=== PATIENT | male | born 1955 | race Caucasian/White ===

== ENCOUNTER 2018-07-07 03:08 | Emergency (ER) | payer OTHER ==
[2018-07-07 03:41] LABS: PLATELET COUNT 255 10^3/uL (150-400)
[2018-07-07] MEDS ORDERED: NS 1,000 ML IV ONE (04:23)
[2018-07-07] MEDS ORDERED: HYDROmorphONE/DILAUDID 2 MG/ML INJ IVP ONE (04:23)
[2018-07-07] MEDS ORDERED: ONDANSETRON 4 MG/2 ML VIAL IVP ONE (04:23)
--- NOTE | 2018-07-07 04:38 | EDPHY ---
H & P Stated Complaint: r u q abd pain for 4 days Time Seen by Provider: 07/07/18 03:58 HPI/ROS: HPI The patient presents with right upper quadrant abdominal pain which has been present for the last 4 days. Prior to this he was having cough and sore throat and subsequently the pain developed. He was seen by his primary care doctor and diagnosed with bronchitis. However his cough is now improved and the pain continues. It is intermittent, sharp in nature, does not radiate, is not associated with nausea or vomiting. It is improved upon walking and worse when lying flat. It is not related to meals. He drinks about 1 glass of wine per day. He has history of bilateral inguinal hernia repair. He does not have any fever, dark or bloody stools. REVIEW OF SYSTEMS Constitutional: No fever, no chills. Eyes: No discharge. ENT: No sore throat. Cardiovascular: No chest pain, no palpitations. Respiratory: No cough, no shortness of breath. Gastrointestinal: See HPI Genitourinary: No hematuria. Musculoskeletal: No back pain. Skin: No rashes. Neurological: No headache. PMHx: Hypertension Soc Hx: Occasional alcohol PHYSICAL General Appearance: Alert, no distress Eyes: Pupils equal and round no pallor or injection ENT, Mouth: Mucous membranes moist Respiratory: There are no retractions, lungs are clear to auscultation Cardiovascular: Regular rate and rhythm Gastrointestinal: Abdomen is soft with mild tenderness in the right upper quadrant without rebound or guarding Neurological: A&O, moves all extremities Skin: Warm and dry, no rashes Musculoskeletal: Neck is supple non tender Extremities: symmetrical, full range of motion Psychiatric: Patient is oriented X 3, there is no agitation Source: Patient Exam Limitations: No limitations - Personal History Current Tetanus/Diphtheria Vaccine: Yes Current Tetanus Diphtheria and Acellular Pertussis (TDAP): Yes - Medical/Surgical History Hx Asthma: No Hx Chronic Respiratory Disease: No Hx Diabetes: No Hx Cardiac Disease: No Hx Renal Disease: No Hx Cirrhosis: No Hx Alcoholism: No Hx HIV/AIDS: No Hx Splenectomy or Spleen Trauma: No - Social History Smoking Status: Never smoked Constitutional: Initial Vital Signs Temperature (C) 36.8 C 07/07/18 03:20 Heart Rate 76 07/07/18 03:20 Respiratory Rate 18 07/07/18 03:20 Blood Pressure 169/95 H 07/07/18 03:20 O2 Sat (%) 94 07/07/18 03:20 O2 Delivery Mode Nasal Cannula O2 (L/minute) 2 Allergies/Adverse Reactions: No Known Allergies Allergy (Unverified 07/07/18 03:19) Home Medications: Medication Instructions Recorded Amlodipine Besylate 07/07/18 Aspirin [Aspirin 81mg (*)] 07/07/18 Lisinopril 07/07/18 Medical Decision Making - Diagnostics Imaging Results: Ultrasound right upper quadrant is unremarkable without any signs of gallstones. CT scan abdomen pelvis with IV contrast demonstrates constipation only, appendix is visualized and normal. Both of these imaging studies were discussed with Dr. Herrera of Radiology. Differential Diagnosis: 63-year-old man with hypertension presents with 4 days of right upper quadrant pain with out any other symptoms. On exam, he does have right upper quadrant tenderness which is mild. Differential diagnosis includes cholelithiasis, cholecystitis, appendicitis, pancreatitis. The patient did have a mildly elevated lipase. He was given IV fluids and medication for pain with improvement in his symptoms. Initially right upper quadrant ultrasound was obtained because of his right-sided pain, however this was normal. I reexamined the patient and he was still having tenderness in his right abdomen, thus decision was made for CT scan which demonstrated only constipation. I have discussed this with him and plan on discharging him from the emergency department with instructions for a bowel regimen. - Data Points Laboratory Results: Laboratory Results 07/07/18 03:30 07/07/18 03:30 07/07/18 07/07/18 07/07/18 03:30 03:30 03:30 WBC 7.34 10^3/uL 10^3/uL (3.80-9.50) RBC 5.08 10^6/uL 10^6/uL (4.40-6.38) Hgb 15.2 g/dL g/dL (13.7-17.5) Hct 44.3 % % (40.0-51.0) MCV 87.2 fL fL (81.5-99.8) MCH 29.9 pg pg (27.9-34.1) MCHC 34.3 g/dL g/dL (32.4-36.7) RDW 12.8 % % (11.5-15.2) Plt Count 255 10^3/uL 10^3/uL (150-400) MPV 8.5 fL L fL (8.7-11.7) Neut % (Auto) 48.4 % % (39.3-74.2) Lymph % (Auto) 35.3 % % (15.0-45.0) [place] % (Auto) 9.4 % % (4.5-13.0) Eos % (Auto) 6.1 % % (0.6-7.6) Baso % (Auto) 0.5 % % (0.3-1.7) Nucleat RBC Rel Count 0.0 % % (0.0-0.2) Absolute Neuts (auto) 3.55 10^3/uL 10^3/uL (1.70-6.50) Absolute Lymphs (auto) 2.59 10^3/uL 10^3/uL (1.00-3.00) Absolute Monos (auto) 0.69 10^3/uL 10^3/uL (0.30-0.80) Absolute Eos (auto) 0.45 10^3/uL H 10^3/uL (0.03-0.40) Absolute Basos (auto) 0.04 10^3/uL 10^3/uL (0.02-0.10) Absolute Nucleated RBC 0.00 10^3/uL 10^3/uL (0-0.01) Immature Gran % 0.3 % % (0.0-1.1) Immature Gran # 0.02 10^3/uL 10^3/uL (0.00-0.10) Sodium 139 mEq/L mEq/L (135-145) Potassium 4.3 mEq/L mEq/L (3.3-5.0) Chloride 107 mEq/L mEq/L (97-110) Carbon Dioxide 21 mEq/l L mEq/l (22-31) Anion Gap 11 mEq/L mEq/L (8-16) BUN 18 mg/dL mg/dL (7-23) Creatinine 0.9 mg/dL mg/dL (0.7-1.3) Estimated GFR > 60 Glucose 102 mg/dL H mg/dL (70-100) Calcium 9.7 mg/dL mg/dL (8.5-10.4) Total Bilirubin 0.6 mg/dL mg/dL (0.1-1.4) Conjugated Bilirubin 0.2 mg/dL mg/dL (0.0-0.5) Unconjugated Bilirubin 0.4 mg/dL mg/dL (0.0-1.1) AST 20 IU/L IU/L (17-59) ALT 25 IU/L IU/L (21-72) Alkaline Phosphatase 52 IU/L IU/L (38-126) Total Protein 7.5 g/dL g/dL (6.3-8.2) Albumin 4.2 g/dL g/dL (3.5-5.0) Lipase 306 IU/L H IU/L (23-300) Medications Given: Discontinued Medications Hydromorphone HCl (Dilaudid) 0.5 mg IVP EDNOW ONE Stop: 07/07/18 04:24 Last Admin: 07/07/18 04:34 Dose: 0.5 mg Sodium Chloride (Ns) 1,000 mls @ 0 mls/hr IV EDNOW ONE; Wide Open PRN Reason: Protocol Stop: 07/07/18 04:24 Last Admin: 07/07/18 04:34 Dose: 1,000 mls Ondansetron HCl (Zofran) 4 mg IVP EDNOW ONE Stop: 07/07/18 04:24 Last Admin: 07/07/18 04:34 Dose: 4 mg Departure - Departure Disposition: Home, Routine, Self-Care Clinical Impression: Constipation Qualifiers: Constipation type: unspecified constipation type Qualified Code(s): K59.00 - Constipation, unspecified Abdominal pain Qualifiers: Abdominal location: right upper quadrant Qualified Code(s): R10.11 - Right upper quadrant pain Condition: Good Instructions: Constipation (ED) Additional Instructions: I recommend you try MiraLax 17 g once a day to see if this helps her symptoms. Please return to the emergency department if your worse in any way. Referrals: Dionicio Lowry [Primary Care Provider] - As per Instructions
[2018-07-07] MEDS ORDERED: IOPAMIDOL (ISOVUE-300) 100 ML BTL ONE (05:31)
[2018-07-07] MEDS ORDERED: MAGNESIUM CITRATE 300 ML BOTTLE PO ONE (05:56)
[2018-07-07 06:55] VITALS: BP 138/84
== END 2018-07-07 06:26 | disposition home or self-care (01) ==
DX: K59.00 Constipation, unspecified (principal); R10.11 Right upper quadrant pain; E86.9 Volume depletion, unspecified
CPT/HCPCS: 96374; J1170; J2405; Q9967